=== PATIENT | female | born 1985 | race Caucasian/White ===

== ENCOUNTER 2020-04-12 10:58 | Emergency (ER) | payer OTHER ==
[2020-04-12] MEDS ORDERED: Acetaminophen 325 MG TAB ONE (11:10)
--- NOTE | 2020-04-12 11:23 | RAD ---
EXAM: 3 views of the right hand COMPARISON: None HISTORY: Hand pain FINDINGS: 3 views of the hand shows no evidence of acute fracture or dislocation. No degenerative leyla nges are seen. No soft tissue swelling is present. IMPRESSION: Unremarkable exam.
== END 2020-04-12 11:30 | disposition home or self-care (01) ==
LOC: NAV ERS 10:58
DX: S60.221A Contusion of right hand, initial encounter (principal); F17.210 Nicotine dependence, cigarettes, uncomplicated; W22.8XXA Striking against or struck by other objects, initial encounter